=== PATIENT | female | born 1985 | race Caucasian/White ===

== ENCOUNTER 2025-08-24 21:36 | Emergency (ER) | payer MEDICAID ==
[~2025-08-24] VITALS: Ht 172.7 cm; Wt 91.0 kg
[2025-08-24 21:44] VITALS: O2SAT 100
[2025-08-24 23:26] LABS: BASOPHILS % 0.8 % (0.0-2.0); EOSINOPHILS % 0.8 % (0.0-5.0); HEMATOCRIT. 37.8 % (36.0-48.0); HEMOGLOBIN. 12.7 g/dL (12.0-16.0); LYMPHOCYTES % 14.7 % (20.0-50.0); MEAN PLATELET VOLUME 8.1 fl (7.4-10.4); MONOCYTES % 8.3 % (2.0-8.0); NEUTROPHILS % 75.4 % (40.0-76.0); PLATELET 315 x1000/uL (130-400); RED BLOOD CELL COUNT 4.32 mill/uL (4.2-5.4); RED CELL DISTRIBUTION WIDTH 13.1 % (11.6-14.6)
[2025-08-24 23:41] LABS: HCG SCREEN NEGATIVE
[2025-08-24 23:42] LABS: CREATININE 0.9 mg/dL (0.6-1.0); UREA NITROGEN BLOOD 7 mg/dL (9-23)
[2025-08-25 06:00] VITALS: TEMP 36.7
[2025-08-25 10:43] VITALS: BP 109/66; PULSE 83; RESP 16; O2SAT 100
== END 2025-08-25 10:55 | disposition home or self-care (01) ==
LOC: ER 21:36
DX: R45.851 Suicidal ideations (principal); F32.9 Major depressive disorder, single episode, unspecified; Z79.899 Other long term (current) drug therapy; Z20.822 Contact with and (suspected) exposure to COVID-19
CPT/HCPCS: 36415; 80048; 80307; 80320; 80329; 84703; 85025; 87426; 93005; 99285; G0480